=== PATIENT | female | born 1960 | race Native Hawaiian/Other Pacific Islander ===

== ENCOUNTER 2019-07-26 13:25 | Outpatient (CLI) | payer OTHER | END 2019-07-26 20:19 | disposition home or self-care (01) | LOC: MAMMO 13:25 | DX: Z12.31 Encounter for screening mammogram for malignant neoplasm of breast (principal) ==

== ENCOUNTER 2020-06-04 15:22 | Observation (INO) | payer OTHER ==
[~2020-06-04] VITALS: Ht 175.3 cm; Wt 96.8 kg
[2020-06-04 15:26] VITALS: BP 194/96; TEMP 99.2; TEMP 99.5
[2020-06-04 15:49] LABS: PLATELET COUNT 124 K/uL (152-353)
[2020-06-04 15:54] VITALS: BP 156/76
[2020-06-04 16:01] LABS: PARTIAL THROMBOPLASTIN TIME 27.2 SECONDS (24.5-33.6)
[2020-06-04 16:02] LABS: POTASSIUM 4.9 mmol/L (3.6-5.2)
[2020-06-04 16:06] LABS: SODIUM 116 mmol/L (136-145)
[2020-06-04 16:31] VITALS: BP 167/82
[2020-06-04 17:00] VITALS: BP 147/79
[2020-06-04 18:00] VITALS: BP 149/77
[2020-06-04 23:31] LABS: POTASSIUM 4.6 mmol/L (3.6-5.2)
[2020-06-05] VITALS (7 sets, daily range): BP systolic 104–162; BP diastolic 65–82; TEMP 97.6–98.6; Ht 175.3 cm; Wt 96.8 kg
[2020-06-05 05:13] LABS: PLATELET COUNT 102 K/uL (152-353)
[2020-06-05] MEDS ORDERED: MOBIC7.5 M1 PO (05:37)
[2020-06-05] MEDS ORDERED: CHLORTHALID25 MG PO (05:40)
[2020-06-05] MEDS ORDERED: ROZEREM8 MG PO (05:40)
[2020-06-05] MEDS ORDERED: LISI20TA11 PO (05:41)
[2020-06-05] MEDS ORDERED: SEROQUEL200 MG PO (05:43)
[2020-06-05 05:46] LABS: POTASSIUM 4.3 mmol/L (3.6-5.2)
[2020-06-05 11:05] LABS: POTASSIUM 5.9 mmol/L (3.6-5.2)
[2020-06-05 18:44] LABS: POTASSIUM 5.8 mmol/L (3.6-5.2)
[2020-06-05 23:29] LABS: POTASSIUM 5.2 mmol/L (3.6-5.2)
[2020-06-06 00:11] VITALS: BP 180/90; TEMP 97.9
[2020-06-06 03:59] VITALS: BP 168/82; TEMP 98.2
[2020-06-06 05:43] LABS: PLATELET COUNT 105 K/uL (152-353)
[2020-06-06 05:52] LABS: POTASSIUM 5.4 mmol/L (3.6-5.2)
[2020-06-06] MEDS ORDERED: AMLODIPINE BESYLATE PO (09:46)
[2020-06-06 11:42] LABS: POTASSIUM 5.3 mmol/L (3.6-5.2)
== END 2020-06-06 13:01 | disposition home or self-care (01) ==
LOC: ED 15:22 → MED/SURG 17:45
PROVIDERS: Internal Medicine Endocrinology, Diabetes & Metabolism; ADMIT Family Medicine
DX: E87.1 Hypo-osmolality and hyponatremia (principal); I10 Essential (primary) hypertension; Z72.0 Tobacco use; M62.82 Rhabdomyolysis; R19.7 Diarrhea, unspecified; R25.2 Cramp and spasm; J44.9 Chronic obstructive pulmonary disease, unspecified; K74.69 Other cirrhosis of liver; K21.9 Gastro-esophageal reflux disease without esophagitis
CPT/HCPCS: 36415; 80048; 80053; 82550; 82553; 83880; 83935; 84295; 84484; 85027; 85379; 85610; 85730; 93005; 94760; 96360; 96361; 99220; 99284; G0378; J1650

== ENCOUNTER 2020-11-01 18:22 | Inpatient (IN) | payer OTHER ==
[~2020-11-01] VITALS: Ht 177.8 cm; Wt 113.6 kg
[2020-11-01 18:22] VITALS: BP 212/120; TEMP 98.6
[~2020-11-01 18:22] MED LIST: AMLODIPINE BESYLATE PO; CHLORTHALID25 MG PO; LISI20TA11 PO; MOBIC7.5 M1 PO; ROZEREM8 MG PO; SEROQUEL200 MG PO
[2020-11-01 19:13] VITALS: BP 166/93
[2020-11-01 19:37] LABS: PLATELET COUNT 165 K/uL (152-353)
[2020-11-01 20:02] LABS: SODIUM 138 mmol/L (136-145)
[2020-11-01] MEDS ORDERED: MAGNESIUM OXID400 M3 PO (20:25)
[2020-11-01] MEDS ORDERED: AMINOFEN500 MG PO (20:27)
[2020-11-01] MEDS ORDERED: HYDR25TA60 PO (20:30)
[2020-11-01] MEDS ORDERED: LORATADINE10 M1 PO (20:31)
[2020-11-01] MEDS ORDERED: VITAMIN E400 UNIT PO (20:31)
[2020-11-01] MEDS ORDERED: D350 MCG PO (20:32)
[2020-11-01] MEDS ORDERED: HAIR SKIN AND N1 TAB PO (20:32)
[2020-11-01 20:57] VITALS: BP 168/91; TEMP 98.6
--- NOTE | 2020-11-01 21:40 | NUR ---
59 YR OLD FEMALE PT BROUGHT TO ICU 3 VIA STRETCHER FROM ER, ADMITTED WITH COPD EXACERBATION AND RESPIRATORY INSUFFICIENCY. PT ALERT AND ORIENTED SITTING UP IN BED WITH NO ACUTE DISTRESS NOTED, SOB AND SOME INCREASED RESPIRATORY EFFORT WITH ACTIVITY, SKIN WARM AND DRY, RADIAL AND PEDAL PULSES INTACT/EQUAL, BS+, EXPIRATORY WHEEZING NOTED ON AUSCULTATION, VENTI MASK IN USE, 24G IV INTACT TO L HAND AND 20G IV INTACT TO R WRIST. PT EDUCATED ABOUT CARE/ORDERS/MEDICATIONS AND QUESTIONS ANSWERED. SEE ADMIT ASSESSMENT FOR MORE INFO. WILL MONITOR CLOSELY, RAILS UP, BED IN LOW POSITION, CALL LIGHT IN REACH, ENCOURAGED TO CALL NEEDED OR FOR ASSIST TO BSC DUE TO PT SOB WITH ACTIVITY. PT ACKNOWLEDGES UNDERSTANDING.
[2020-11-01 22:11] VITALS: BP 180/97
[2020-11-01 22:57] VITALS: BP 194/95
[2020-11-01 23:00] VITALS: BP 162/83
[2020-11-02] VITALS (51 sets, daily range): BP systolic 101–189; BP diastolic 31–106; TEMP 98.6–98.9; Ht 177.8 cm; Wt 113.6 kg
--- NOTE | 2020-11-02 00:01 | NUR ---
11/01/2020 AT 2348 NOTE ON WIND TURBINE PERFORMANCE ENGINEER PT'S RHYTHM IS IRREGULAR AND RATE IN 140s, PT INSTRUCTED TO BARE DOWN IF HAVING A BM NOTE NO CHANGE IN WIND TURBINE PERFORMANCE ENGINEER. 2352 CALLED RESPIRATORY WHO IS NOW AT BEDSIDE GETTING EKG ON PT, RESULT A-FIB RATE 142 PER EKG. PT STATES SHE DOES FEEL LIKE HER HEART IS RACING. CALLED DR. FARLEY IN ER NOTIFIED HIM OF CHANGE IN PT'S HEART RATE AND RHYTHM. DR. FARLEY IS ON [address] WAY DOWN TO SEE PT AT THIS TIME.
--- NOTE | 2020-11-02 00:02 | NUR ---
DR. FARLEY FROM ER NOW AT BEDSIDE, EKG RESULTS GIVEN TO DR, NEW ORDERS RECEIVED.
--- NOTE | 2020-11-02 00:10 | NUR ---
HEART RATE 138, GAVE CARDIZEM 20MG SLOW IVP OVER 4 MINUTES PER NEW ORDER. COAT FITTER BEING MONITORED CLOSELY. AT 0015 HEART RATE 114, IRREGULAR RHYTHM. 11/02/20 AT AROUND 0040 HUNG CARDIZEM DRIP TO INFUSE AT 10MG/HOUR PER NEW ORDER, DRIVER LIFTER OF SANITATION TRUCK CONTINUES TO MONITOR PT OFTEN AND MONITOR VITALS EVERY 15 MINUTES. PT EDUCATED ABOUT MEDICATION.
--- NOTE | 2020-11-02 01:45 | NUR ---
EQUINE MANAGER SHOWS IRREGULAR RHYTHM WITH RATE IN 140s. INCREASED CARDIZEM DRIP TO 15MG/HOUR, WILL MONITOR CLOSELY.
--- NOTE | 2020-11-02 01:54 | NUR ---
RESTING WITH EYES CLOSED, NO S/S OF PAIN OR DISTRESS NOTED, BOTH IV SITES INTACT, NS INFUSING AT 50ML/HR, CARDIZEM DRIP INFUSING WITH A-FIB NOTED ON MONITOR IRREGULAR RATE IN 130s(IF NOT IMPROVED WILL CALL ER DR AT 0200), RESP RATE 18 NONLABORED, O2 AT 3LPM VIA NC WITH SAT OF 95%, LAST B/P 133/55, WILL MONITOR CLOSELY, RAILS UP, BED IN LOW POSITION, CALL LIGHT IN REACH.
--- NOTE | 2020-11-02 02:42 | NUR ---
HEART RATE REMAINS IRREGULAR 129.
--- NOTE | 2020-11-02 02:56 | NUR ---
NEW TELEPHONE ORDER FROM DR. FARLEY IN ER FOR CARDIZEM 25MG SLOW IVP OVER 4 MINUTES X 1 DOSE NOW, MAY TITRATE CARDIZEM DRIP PER PROTOCOL. HEART RATE 120s-140 IRREGULAR. WILL CONTINUE TO MONITOR PT AND VITALS CLOSELY. PT HAVING SOME SLIGHT SOB WITH MUCH MOVEMENT. 0245 HEART RATE 130, B/P 130/65, RESP RATE 19, O2 SAT 95%, WILL MONITOR, RAILS UP, BED IN LOW POSITION.
--- NOTE | 2020-11-02 03:28 | NUR ---
GAVE CARDIZEM 25MG SLOW IVP OVER 4 MINUTES PER NEW ONE TIME ORDER. EMERGENCY DISPATCH OPERATOR AND VITALS BEING MONITORED CLOSELY, REMAINS ON CARDIZEM DRIP HEART RATE IRREGULAR 130S-120s AT TIME MEDICATION GIVEN.
--- NOTE | 2020-11-02 03:45 | NUR ---
HEART RATE DECREASED TO 99 BUT REMAINS IRREGULAR SINCE CARDIZEM DOSE GIVEN AT 0328. WILL CONTINUE TO MONITOR.
--- NOTE | 2020-11-02 04:30 | NUR ---
HEART RATE IN 90s IRREGULAR, DECREASED CARDIZEM DRIP TO 10MG/HOUR, WILL MONITOR CLOSELY.
--- NOTE | 2020-11-02 06:15 | NUR ---
UP TO BSC WITH ASSIST, PT SOB WITH ACTIVITY. URINATED AND NOW BACK IN BED. ALERT AND ORIENTED, BOTH IV SITES INTACT WITH NS ONGOING AND CARDIZEM DRIP AT NOW AT 15MG/HOUR RATE INCREASED TO 110s ONCE PT WAS AWAKE, WILL CONTINUE TO MONITOR CLOSELY, RAILS UP, BED IN LOW POSITION, HOB ELEVATED.
--- NOTE | 2020-11-02 06:23 | NUR ---
PT PLACE ON HIGH FLOW NC BY RESPIRATORY PER NEW ORDER FROM DR. FARLEY. ABG WILL BE DRAWN AT 0800.
--- NOTE | 2020-11-02 07:00 | NUR ---
REC'D PT AWAKE AND ALERT SITTING UP IN BED ON CELLPHONE. NO ACUTE DISTRESS NOTED OR CO FROM PT AT THIS TIME. PT NOTED TO HAVE CARDIZEM DRIP INFUSING AT 15ML/HR VIA PUMP INTO LEFT HAND. NS AT 50ML/HR NOTED TO BE INFUSING INTO RT FA AT THIS TIME. PT NOTED TO REMAIN IN AFIB BUT RATE CONTROLLED IN 90'S AT THIS TIME. PT DENIES ANY PAIN OR PROBLEMS AT THIS TIME. PT ALSO NOTED TO BE ON HIGH FLOW AT 35% AT 45L. WILL CONT TO MONITOR.
--- NOTE | 2020-11-02 08:15 | NUR ---
RESP AT BS OBTAINING ROUTINE ABG.
[2020-11-02 08:29] LABS: PLATELET COUNT 167 K/uL (152-353)
--- NOTE | 2020-11-02 08:30 | NUR ---
TORI FROM RESP BROUGHT ABG RESULTS AND SUGGESTED WE TRY TO WEAN PT FROM HIGH FLOW TO NC AT 3L BASED ON ABG. PT SITTING UP IN BED EATING BREAKFAST. NO DISTRESS NOTED. WILL CONT TO MONITOR.
[2020-11-02 08:37] LABS: POTASSIUM 4.6 mmol/L (3.6-5.2); SODIUM 134 mmol/L (136-145)
--- NOTE | 2020-11-02 08:41 | NUR ---
PLACED PT ON N/C @ 3 LPM. NURSE NOTIFIED.
--- NOTE | 2020-11-02 09:15 | NUR ---
PT ASKED TO BORROW PHONE SECURITY ASSESSOR CORD. PT ON PHONE IN BED. PT STATES SHE STILL FEELS LITTLE WEAK BUT IMPROVED FROM TIME OF ADMINSION. NC AT 3L INTACT AND SATS MAINTAINING 93-94%,
--- NOTE | 2020-11-02 09:30 | NUR ---
ARCHANA FROM [facility] PHONED AND STATED SHE HAD REC'D ORDER FOR VQ SCAN IN AM AND MEDS WERE ORDERED PT WOULD HAVE TEST IN AM. EXPLAINED TO PT TO REMAIN NPO AFTER MN TONIGHT FOR TEST. PT VERBALIZED UNDERSTANDING. -
--- NOTE | 2020-11-02 10:10 | NUR ---
DR HUYNH CALLED AND UPDATE GIVEN ON PT. INFORMED HER OF PT RECEIVING CARDIZEM DRIP AND VS STABLE AT THIS TIME. ALSO INFORMED HER THAT PT WAS ON NC AT 3L/NC AND SATS HOLDING AT 95%. NEW ORDERS REC'D TO OBTAIN A TSH FROM AM LABS. LAB INFORMED AND SPOKE WTIH ADALI CONCERNING NEW ORDER.
--- NOTE | 2020-11-02 10:30 | NUR ---
DR HUYNH AT BS TALKING WITH PT AT THIS TIME.
--- NOTE | 2020-11-02 14:30 | NUR ---
PT'S HR NOTED TO BE AROUND 90-92 HOWEVER NOTED THAT PT WAS BACK IN SR WITH BBB. INFOMRED IFNORMED PER MD WE WOULD START CARDIZEM PO THEN TIRTRATE DRIP AFTER PO MEDS.
--- NOTE | 2020-11-02 16:03 | NUR ---
PT ASSISTED UP TO BSC AT THIS TIME. PT NOTED TO GET VERY SHORT OF BREATH WITH MINIUM EXERTION. SATS MAINTAIN WNL ON NC AT 3L.
--- NOTE | 2020-11-02 18:22 | NUR ---
PT'S HR NOTED TO BE 93 AND REMAINS SR ON TEL WITH BBB. CARDIZEM DRIP DECREASED TO 12ML AT THIS TIME. WILL CONT TO MONITOR.
--- NOTE | 2020-11-02 21:00 | NUR ---
AWAKE WATCHING TV WITH NO DISTRESS NOTED, DENIES ANY NEED, RESP RATE NONLABORED WITH O2 AT 3LPM VIA NC WITH SAT IN MID TO HIGH 90s, VITALS BEING MONITORED, GEOTECHNICAL LABORATORY TECHNICIAN IN USE WITH REGULAR RATE/RHYTHM IN 90s CARDIZEM DRIP AT 10MG/HR ATTEMPTING TO GET PT OFF DRIP DURING SHIFT EARLIER PT STARTED ON PO MED FOR A-FIB, VITALS BEING MONITORED, ENCOURAGED TO CALL NEEDED, RAILS UP, BED IN LOW POSITION. NONPRODUCCTIVE COUGH NOTED AT TIMES.
--- NOTE | 2020-11-02 22:00 | NUR ---
DECREASED CARDIZEM DRIP TO 8MG/HR, WILL CONTINUE TO MONITOR CLOSELY.
--- NOTE | 2020-11-02 23:20 | NUR ---
AWAKE AND ALERT WITH NO ACUTE DISTRESS NOTED, SITTING UP RIGHT IN BED WATCHING TV AND TALKING WITH STAFF, IV SITES INTACT WITH NORMAL SALINE AND CARDIZEM DRIP ONGOING, RESP RATE NONLABORED BUT PT DOES GET SOB WITH ANY ACTIVITY,, O2 AT 3LPM VIA NC, DENIES ANY PROBLEMS AT THIS TIME, RAILS UP, BED IN LOW POSITION, ENCOURAGED TO CALL NEEDED.
--- NOTE | 2020-11-02 23:39 | NUR ---
PT UP TO BSC TO URINATE. NOTE SOME SOB WITH ACTIVITY, PT NOW BACK IN BED WITH NO ACUTE DISTRESS NOTED, WILL MONITOR, RAILS UP, BED INLOW POSITION, CALL LIGHT IN REACH.
--- NOTE | 2020-11-02 23:45 | NUR ---
PT GIVEN EDUCATIONAL HANDOUT ABOUT A-FIB.
[2020-11-03] VITALS (44 sets, daily range): BP systolic 117–11554; BP diastolic 7–103; TEMP 98–98.5
--- NOTE | 2020-11-03 00:05 | NUR ---
PATIENT SITTING IN HIGH FOWLERS POSITION WATCHING TV. PATIENT DENIES ANY PAIN, NEEDS OR C/O AT THIS TIME. NAD NOTED WITH PATIENT. BEDSIDE TABLE WITH PERSONAL BELONGINGS WITHIN PATIENT'S REACH.
--- NOTE | 2020-11-03 01:30 | NUR ---
DECREASED CARDIZEM DRIP TO 5MG/HR, CEMENT SACK BREAKER SHOWS REGULAR RATE AND SINUS RHYTHM RATE IN 80s, WILL CONTINUE TO MONITOR CLOSELY, PT RESTING QUIETLY WITH EYES CLOSED AND NO S/S OF DISTRESS NOTED. RAILS UP, BED IN LOW POSITION, CALL LIGHT IN REACH.
--- NOTE | 2020-11-03 03:55 | NUR ---
CONTINUES TO REST WITH EYES CLOSED AND NO S/S OF PAIN OR DISTRESS NOTED. VITALS BEING MONITORED, STRIKE PLATE ATTACHER IN USE WITH REGULAR RATE IN 70s, IV INTACT WITH NS INFUSING AT 50 AND CARDIZEM DRIP INFUSING AT 5MG/HR. WILL MONITOR CLOSELY, RAILS UP, BED IN LOW POSITION, CALL LIGHT IN REACH.
--- NOTE | 2020-11-03 04:00 | NUR ---
DECREASED CARDIZEM DRIP TO 2MG/HR, WILL MONITOR CARDIAC CLOSELY.
--- NOTE | 2020-11-03 04:40 | NUR ---
TECH INTERN SHOWS REGULAR RHYTHM RATE 80. CARDIZEM DRIP ONGOING, WILL MONITOR CLOSELY.
--- NOTE | 2020-11-03 04:52 | NUR ---
PT JUST FINISHED BREATHING TREATMENT, CIRCUIT BOARD DRAFTER NOTES LONG LINES OPERATOR SHOWS IRREGULAR RHYTHM WITH RATE 110s TO 130 APPEARS TO BE A-FIB. 0455 INCREASED CARDIZEM DRIP TO 5MG/HR. WILL MONITOR.
--- NOTE | 2020-11-03 05:20 | NUR ---
BLOOD DRAWN BY MECHANICAL PROJECT ENGINEER AT THIS TIME FOR AM LABS. PATIENT TOLERATED WELL AND DENIES ANY C/O AT THIS TIME. PER PATIENT'S REQUEST, PROVIDED PATIENT WITH CUP OF ICE.
[2020-11-03 05:33] LABS: PLATELET COUNT 161 K/uL (152-353)
--- NOTE | 2020-11-03 05:38 | NUR ---
PT AWAKE SITTING UP RIGHT IN BED IN HIGH FIELDS'S POSITION TALKING WITH STAFF WITH NO ACUTE DISTRESS NOTED, IV SITES INTACT, VITALS BEING MONITORED, 02 AT 3LPM VIA NC WITH SAT 0F 94%, PT EATING A SNACK AND DRINKING SOME WATER NOW HAVING A "COUGHING SPELL" SHE STATES. COUGHING FREQUENTLY FOR A FEW MINUTES, NOTE HEART RATE INCREASED TO 130-140. EVEN WHEN PT ASKED TO SIT STILL AND STOP MOVING(DUE TO EATING AND DRINKING DRINK) RATE 120s-130. INCREASED CARDIZEM DRIP TO 8MG/HR, ENCOURAGED PT TO RELAX. WILL MONITOR CLOSELY, RAILS UP, BED IN LOW POSITION.
[2020-11-03 05:42] LABS: POTASSIUM 4.3 mmol/L (3.6-5.2)
--- NOTE | 2020-11-03 06:03 | NUR ---
PT CONTINUES TO COUGH OFF AND ON NOTE PT EATING ICE. ASKED PT TO HOLD OFF ON EATING ICE FOR A WHILE BUT PT STATES SHE NEEDS ICE FOR HER COUGH. CONTROL SUPERVISOR CONTINUES TO MONITOR CLOSELY, HEART RATE 110-120, CARDIZEM DRIP REMAINS AT 8MG/HR. PT SITTING IN HIGH FIELDS'S POSITION WATCHING TV. O2 SAT 93-94%. WILL MONITOR CLOSELY, RAILS UP, BED IN LOW POSITION. NOTE PT WILL GET 2ND DOSE OF CARDIZEM PO THIS MORNING(SCHEDULED AT 0900).
--- NOTE | 2020-11-03 08:30 | NUR ---
PT SITTING UP FEEDING SELF BREAKFAST. TALKING ON TELEPHONE WITH [facility] ABOUT HER APPOINTMENTS.
--- NOTE | 2020-11-03 09:17 | NUR ---
MARISOL PETTIT RN NOTIFIED OF NEED TO CALL [facility]. AUTHORIZATION # & REFERRAL NUMBER GIVEN TO HER. INFORMED HER OF PT'S REQUEST FOR PORTABLE O2.
--- NOTE | 2020-11-03 11:35 | NUR ---
PT UP TO BSC TO VOID. PT WITH INCREASED SOB WITH EFFORT. PT WITH LARGE VOID& SM BROWN FORMED BM. PERICARE PER SELF. PT BACK TO BED, DR HUYNH AT BS.
--- NOTE | 2020-11-03 13:05 | NUR ---
PT TO XRAY PER WC ON O2@ 2L/NC.
--- NOTE | 2020-11-03 13:15 | NUR ---
PT BACK FROM XRAY ON O2 AT 2L/NC. AGAIN NOTED SOB WITH EFFORT. BACK TO BED.
--- NOTE | 2020-11-03 13:48 | NUR ---
i called [facility] @ [phone] x [phone] and spoke with Adore to confirm auth #[id number] that was notification for ICU admit. they confirmed auth # and that pt does not require additional precert for ECHO to be done today inhouse, No precert required because she is inpt, call reference number [id number]. I notified her nurse, Marilee of same. I also called [phone] to schedule her FU appts, x [phone] Juan F Dexter on 11/13/20 @ noon, x [phone] for PCP fu with Dr. Nichol Saucedo on 11/11/20 @ 9:30am (she is not there on so could do same day as pulm appt). They are also putting in an urgent request for New Cardiology Consult and will call pt to schedule kyaw, we may call x [phone] to FU.
--- NOTE | 2020-11-03 13:55 | NUR ---
CALL FROM MARISOL MARSHALL RN. HAS TALKED WITH [facility] OK[facility]D ECHO TODAY & SCHEDULED F/U APPOINTMENTS FOR HER FOR CHIEF ENGINEER PRODUCTION/PRIMARY CARE DR & WILL CALL HER FOR CARDIOLOGY CONSULT WITH AT THE ID.
--- NOTE | 2020-11-03 14:00 | NUR ---
RT IN WITH PT. ECHO CARDIOGRAM IN PROGRESS.
--- NOTE | 2020-11-03 14:52 | NUR ---
REFERREAL TO DR THOMAS PER JANET OLIVEIRA ARC WELDER TALKED WITH TORY. DR THOMAS WILL SEE PT IN THE AM. INFO FAXED TO DR THOMAS.
--- NOTE | 2020-11-03 16:54 | NUR ---
PT WITH ELEVATED BP 167/83, HR 93. PT MEDICATED WITH LABETELOL 10MG SIVP.
--- NOTE | 2020-11-03 18:30 | NUR ---
OH'S HR 89 BPM, AFIB. CARDIZEM DRIP DECREASED TO 4MG/HR.
--- NOTE | 2020-11-03 20:19 | NUR ---
PATIENT WAS HELPED TO THE BSC. THE PATIENT WAS THEN WAS PLACED IN THE CHAIR AND PATIENT PATIENT REPORTED RELIEF FROM BACK DISCOMFORT
--- NOTE | 2020-11-03 20:36 | NUR ---
PATIENT IS UP IN THE CHAIR AT BEDSIDE WATCHING TV
--- NOTE | 2020-11-03 22:57 | NUR ---
PATIENT IS RESTING QUIETLY WITH EYES CLOSED. NO ACUTE DISTRESS IS NOTED. PATIENT CURRENT HR B/W 108-118, SPO2 95%, RR 18, B/P 159/84.
--- NOTE | 2020-11-03 23:26 | NUR ---
PATIENT IS AWAKE AND READING. RESPIRATORY IS AT BEDSIDE GIVING BREATHING TREATMENT
[2020-11-04] VITALS (23 sets, daily range): BP systolic 99–206; BP diastolic 72–100; TEMP 97.6–99
--- NOTE | 2020-11-04 01:51 | NUR ---
PATIENTS O2 DROPPED SIGHTLY IN THE HIGH 80S. I RAISED THE HEAD OF HER BED AND AND SATURATION IMPROVED. PATIENT CURRENT O2 SATURATION IS LOW TO MID 90S
--- NOTE | 2020-11-04 01:52 | NUR ---
Patient remains on Cardizem IV drip at 4mg/hr with current hr fluctuating b/w 97-120 with rhythm still irregular showing Atrial Fib. Will continue to montior as titrate down as needed.
--- NOTE | 2020-11-04 02:51 | NUR ---
LATE ENTRY. 11/04/20 0230. PATIENTS HEART RATE HAS BEEN STABLE RANGING FROM 95-110. WE WEANED HER OFF THE CARDIZEM DRIP. PATIENT IS STABLE AND RESTING. HER RESPIRATIONS ARE EVEN AND NON LABORED. PATIENTS HEART RATE IS STABLE.
--- NOTE | 2020-11-04 03:40 | NUR ---
Patient noted with blood pressure of 153/84 with HR -118. PATIENT GIVEN LABETOLOL 10 MG GIVEN SLOW IV PUSH. WILL MONITOR FOR DECREASE IN BLOOD PRESSURE,
--- NOTE | 2020-11-04 03:40 | NUR ---
PATIENT NOTED WITH BLOOD PRESSURE OF 153/78 WITH HR 118 WITH 95% SPO2 AT 3 LPM VIA NC. WILL MONITOR FOR DECREASE IN BLOOD PRESSURE.
--- NOTE | 2020-11-04 04:10 | NUR ---
POST 30 MINUTE OF LABETALOL PATIENTS CURRENT 110/77, HR-85, SPO2 96%, RR-16.
[2020-11-04 05:18] LABS: PLATELET COUNT 161 K/uL (152-353)
[2020-11-04 05:24] LABS: POTASSIUM 4.7 mmol/L (3.6-5.2)
--- NOTE | 2020-11-04 05:44 | NUR ---
Patient requested assistance with monitors to use the bedside commode. Patient taken of the monitors and voided 1000 mls of clear yellow urine. Patient was able to do activity w/o assistance however paitent does get short of breath on exertion. Patient was noted taking slow deep breaths using pursed lips and o2 sats in the upper 90's with HR-109.
--- NOTE | 2020-11-04 07:45 | NUR ---
PT SITTING IN HF TALKING WITH STAFF. NAD NOTED. HR 100-115 AFIBB WITH PVCS. PT ON 3 L/M NC. PT GIVEN CUP OF ICE PER REQUEST. BED IN LOWEST POSITION, SRX2, CALL LIGHT IN REACH. WILL CONTINUE TO MONITOR.
--- NOTE | 2020-11-04 09:07 | NUR ---
NURSE FROM DR. THOMAS'S OFFICE AT BEDSIDE SPEAKING WITH PT.
--- NOTE | 2020-11-04 13:00 | NUR ---
DR THOMAS AT BEDSIDE TO SEE PT. ORDERS REC'D TO GIVE DIGOXIN 0.5 MG IVP NOW, GIVE DIGOXIN 0.25 MG IVP AT 1600, GIVE DIGOXIN 0.25 MG IVP AT 2200, START DIGOXIN 0.125 MG PO DAILY STARTING TOMORROW AND CHECK DIG LEVEL IN A COUPLE OF DAYS.
--- NOTE | 2020-11-04 23:00 | NUR ---
Patient noted with increased blood pressure reading 194/87, HR-138. Patient given Labatolol 10 mg Slow Iv push. Will reassess for decrease in blood pressure and HR.
--- NOTE | 2020-11-04 23:14 | NUR ---
PATIENT WAS UP TO THE BSC AND A MEDIUM SOFT FORMED BM
--- NOTE | 2020-11-04 23:30 | NUR ---
30 minutes post medication patient blood pressure is reading 167/89, HR-97. Will continue to monitor.
[2020-11-05] VITALS (20 sets, daily range): BP systolic 126–183; BP diastolic 73–884; TEMP 97.8–99.3
--- NOTE | 2020-11-05 00:24 | NUR ---
RT AT THE BEDSIDE ADMINISTERING BREATHING TREATMENT. HEART RATE 103. WILL MONITOR THROUGH TREATMENT
--- NOTE | 2020-11-05 01:00 | NUR ---
PATIENT IS UP IN BED WATCHING TV. PATIENT DENIES PAIN AND IS RESTING. NO ACUTE DISTRESS NOTED
[2020-11-05 02:35] LABS: PLATELET COUNT 171 K/uL (152-353)
[2020-11-05 02:36] LABS: POTASSIUM 4.9 mmol/L (3.6-5.2)
--- NOTE | 2020-11-05 02:56 | NUR ---
0200 :PATIENTS SYSTOLIC BP WAS 170/84. PATIENT WAS GIVEN 10MG OF LABETALOL IV. AT 0230 PATIENTS BP WAS REASSESED AND AND DIT WAS 124/73
--- NOTE | 2020-11-05 04:41 | NUR ---
PATIENT WAS HELPED UP TO THE BESIDE COMODE WITH STAND BY ASSIST ONLY
--- NOTE | 2020-11-05 09:45 | NUR ---
DR SANDERSON AT MAKING ROUNDS AND TALKING TO PT.
--- NOTE | 2020-11-05 13:15 | NUR ---
PTS BP NOTED TO BE 176/95 WITH HR 113. WILL GIVE PT PRN BP MEDS
--- NOTE | 2020-11-05 14:00 | NUR ---
BP 54068 HR 96 WILL CONT TO MONITOR.
--- NOTE | 2020-11-05 15:00 | NUR ---
BP 156/86 HR 97 PT HAS NO CO AT THIS TIME. WILL CONT TO MONITOR.
--- NOTE | 2020-11-05 16:09 | NUR ---
PT'S BP NOTED TO NE 181/110 HR 98. PT DENIES ANY PAIN OR PROBLEMS. WILLGIVE PRN MEDS AND INFORM MD . ATTMEPTED TO CONTACT DR SANDERSON IN [place] NO ANSWER. WILL TRY AGAIN AT LATER TIMES.
--- NOTE | 2020-11-05 17:47 | NUR ---
DR SANDERSON INFORMED ABOUT PT'S BP BEING ELEVATED STARTING AROUND 1330 TODAY AND INFORMED HIM WE HAD GIVEN PRN LABETALOL IV. PT'S BP REMAINS AT 174/100 HR 113 AT REST. HE INFOMRED ME HE WOULD LOOK AT HER MEDS AND MAKE ADJUSTMENTS TO HER MEDS WILL AWAIT FURTHER ORDERS.
--- NOTE | 2020-11-05 19:20 | NUR ---
PT AWAKE, ALERT, AND ORIENTED SITTING UP IN BED WATCHING TV AND TALKING WITH STAFF, DENIES ANY PAIN OR PROBLEMS AT THIS TIME, RESP RATE NONLABORED, O2 AT 3LPM VIA NC, IV SITES INTACT, VITALS BEING MONITORED, WILL MONITOR CLOSELY, RAILS UP, BED IN LOW POSITION, ENCOURAGED TO CALL NEEDED.
--- NOTE | 2020-11-05 21:25 | NUR ---
PT AWAKE WITH NO DISTRESS NOTED TALKING ON PHONE, NO S/S OF PAIN OR DISTRESS NOTED, RESP RATE NONLABORED, VITALS BEING MONITORED, WILL MONITOR CLOSELY, RAILS UP, BED IN LOW POSITION.
--- NOTE | 2020-11-05 23:08 | NUR ---
PT AWAKE WATCHING TV WITH NO S/S OF DISTRESS NOTED, WILL MONITOR CLOSELY, VITALS BEING MONITORED, RAILS UP, BED IN LOW POSITION, CALL LIGHT IN REACH.
[2020-11-06] VITALS (25 sets, daily range): BP systolic 139–191; BP diastolic 78–108; TEMP 97–99.2
--- NOTE | 2020-11-06 00:10 | NUR ---
RESPIRATORY AT BEDSIDE AND ADMINISTERING BREATHING TX TO PATIENT.
--- NOTE | 2020-11-06 00:26 | NUR ---
GAVE LABETALOL 10MG SLOW IVP PRN FOR ELEVATED B/P. B/P WAS 164/98 AND THEN RETAKEN AT 0020 B/P WAS 172/103. WILL MONITOR B/P AND PT CLOSELY.
--- NOTE | 2020-11-06 01:00 | NUR ---
B/P IS NOW 154/91, WILL CONTINUE TO MONITOR CLOSELY.
--- NOTE | 2020-11-06 01:22 | NUR ---
PT RESTING WITH EYES CLOSED, NO S/S OF PAIN OR DISTRESS NOTED, IV SITES INTACT, VITALS BEING MONITORED, O2 AT 3LPM VIA NC, WILL MONITOR CLOSELY, RAILS UP, BED IN LOW POSITION.
--- NOTE | 2020-11-06 03:55 | NUR ---
PT AWAKE, ALERT, AND ORIENTED X4 WITH NO ACUTE DISTRESS NOTED, DENIES ANY PAIN OR PROBLEMS, BOTH IV SITES INTACT, RESP RATE NONLABORED, O2 AT 3LPM VIA NC WITH O2 SAT OF 97%, VITALS BEING MONITORED, CIRCUITRY NEGATIVE INSPECTOR IN USE WITH IRREGULAR RATE IN 90s. PT UP TO BSC, NOTE SOB WITH ACTIVITY, URINATED 800ML CLEAR YELLOW URINE. PT NOW BACK IN BED, WILL MONITOR CLOSELY, RAILS UP, BED IN LOW POSITION, CALL LIGHT IN REACH, ENCOURAGED TO CALL NEEDED, PT ACKNOWLEDGES UNDERSTANDING.
[2020-11-06 04:58] LABS: PLATELET COUNT 150 K/uL (152-353)
[2020-11-06 05:15] LABS: POTASSIUM 5.1 mmol/L (3.6-5.2)
--- NOTE | 2020-11-06 05:44 | NUR ---
PT RESTING QUIETLY WITH EYES CLOSED, NO S/S OF PAIN OR DISTRESS NOTED, VITALS BEING MONITORED, TAG CLERK IN USE WITH RATE 80-90s IRREGULAR, O2 AT 3LPM VIA NC WITH SAT OF 98%, RESP RATE NONLABORED 20, BOTH IV SITES INTACT, WILL MONITOR CLOSELY, RAILS UP, BED IN LOW POSITION.
--- NOTE | 2020-11-06 07:45 | NUR ---
DR SANDERSON AT TO MAKE ROUNDS. CURRENTLY TALKING WITH PT ABOUT CARE AND FOLLOW UP ON DISCHARGE. NEW ORDER REC'D TO DC IVFS
--- NOTE | 2020-11-06 09:39 | NUR ---
REC'D CALL FROM ELIZABETH, FOOD SERVICE TRAY ATTENDANT WITH [facility], FOLLOWING UP ON POSSIBILITY OF PT TRANSFER. INFORMED HER PT IS CURRENTLY IN OUR PCU AND POSSIBLE DISCHARGE IN THE NEXT ONE OR TWO DAYS, F/U APPTS HAVE ALREADY BEEN MADE WITH [place] [facility] AND MANAGER CLIENT, THAT THE TRANSFER CALL WAS ORIGINALLY MADE FROM WHEN PT WAS IN THE ER. ELIZABETH STATES "OK THAT'S FINE I WAS JUST CALLING MAKING MY ROUNDS THIS MORNING AND I WILL CALL BACK ON TUESDAY TO CHECK AND SEE IF SHE WAS DISCHARGED THROUGH THE WEEKEND." CLARIFIED WITH DR. SANDERSON THAT HE WAS NOT TRYING TO CURRENTLY TRANSFER PT AT THIS TIME.
--- NOTE | 2020-11-06 15:16 | NUR ---
PT'S BP NOTED TO BE 164/101 HR 105-108. DR SANDERSON INFORMED AND INSTRUCTED TO GIVE LABETALOL IV AND HE WOULD ADJUST MEDS . PT SITTING ON BED TALKING TO FAMILY ON CELLPHONE. WILL CONT TO MONITOR.
--- NOTE | 2020-11-06 17:11 | NUR ---
PT'S BLOOD PRESSURE REMAINS ELEVATED AT 186/102. 2ND DOSE OF LABETALOL BEING GIVEN AT THIS TIME. WILL NOTIFY
--- NOTE | 2020-11-06 17:30 | NUR ---
DR SANDERSON IN HERE AT THIS TIME AND INFORMED HIM THAT AROUND 5PM PT'S BP NOTED TO BE 164/101. INFOMRED WE HAD GIVEN HER PRN LABETALOL ORDERED AT 1500 AND AGAIN AROUND 1700 WITH NO CHANGE NOTED IN BP. VERBAL ORDERS REC'D TO GIVE PT ANOTHER DOSE OF METOPROLOL ER 50MG PO X 1 DOSE NOW AND HE WOULD LOOK AND MAKE FIRTHER CHANGES NECCESARY
--- NOTE | 2020-11-06 20:02 | NUR ---
PT AWAKE, ALERT, AND ORIENTED X4 SITTING UP IN BED TALKING WITH STAFF WITH NO ACUTE DISTRESS NOTED, DENIES ANY PAIN OR OTHER PROBLEMS, SKIN WARM AND DRY, RADIAL AND PEDAL PULSES INTACT, 22G IV LOCK INTACT TO L FOREARM WITH NO PROBLEMS NOTED TO SITE, BS+, LUNGS DIMINISHED TO AUSCULTATION. PT UP TO BEDSIDE COMMODE, NOTE PT BECOMES MODERATELY SOB WITH ANY ACTIVITY. PT SAT UP AFTER USING BSC AND GAVE SELF BED BATH WITH WARM CLOTHES, HEALTH OUTCOMES LIAISON ASSISTED PT SOME DUE TO SOB ASSISTED TO GET GOWN ON AND ALSO RUBBER GRINDER/B/P CUFF. GOWN CHANGED, EKG LEADS, AND DRAW SHEET ALSO CHANGED. PT NOW SITTING UP IN BED WATCHING TV, WILL MONITOR CLOSELY, RAILS UP, BED IN LOW POSITION, ENCOURAGED TO CALL NEEDED.
--- NOTE | 2020-11-06 22:20 | NUR ---
PT AWAKE, ALERT, AND ORIENTED SITTING UP IN BED WATCHING TV AND TALKING OFTEN WITH ENGINEERING INSPECTOR. DENIES ANY PAIN OR PROBLEMS NOTED, NO S/S OF DISTRESS NOTED, RESP RATE NONLABORED, O2 AT 3LPM VIA NC, VITALS BEING MONITORED, 22G IV INTACT TO L FA WITH NO PROBLEMS NOTED TO SITE. WILL MONITOR CLOSELY, RAILS UP, BED IN LOW POSITION, CALL LIGHT IN REACH.
[2020-11-07] VITALS (20 sets, daily range): BP systolic 107–189; BP diastolic 52–107; TEMP 97.1–98.6
--- NOTE | 2020-11-07 00:10 | NUR ---
PT RESTING QUIETLY IN BED WITH EYES CLOSED, NO S/S OF PAIN OR DISTRESS NOTED, RESP RATE NONLABORED, O2 IN USE VIA NC AT 3LPM, IV SITE INTACT, VITALS BEING MONITORED, WILL MONITOR CLOSELY, RAILS UP, BED IN LOW POSITION, CALL LIGHT IN REACH.
--- NOTE | 2020-11-07 01:26 | NUR ---
RESTING IN BED WITH EYES CLOSED, NO S/S OF PAIN OR DISTRESS NOTED, RESP RATE 15 NONLABORED, O2 AT 3LPM VIA NC WITH SAT OF 96%, 22G IV INTACT TO L FA WITH NO PROBLEMS NOTED TO SITE(FLUSHED EASILY EARLIER WITH 10ML NS), GLASS FURNACE TENDER IN USE WITH IRREGULAR RATE IN 90s, VITALS BEING MONITORED, WILL MONITOR CLOSELY, RAILS UP, BED IN LOW POSITION, CALL LIGHT IN REACH.
--- NOTE | 2020-11-07 02:00 | NUR ---
PT AWAKE DENIES ANY PAIN OR NEEDS, NO ACUTE DISTRESS NOTED. MANUAL B/P DONE AT THIS TIME MANUAL B/P IS 158/90 ON R ARM, STAFF CONTINUES TO MONITOR VITALS CLOSELY PT STATES THAT IS ABOUT WHAT HER B/P USUALLY IS. IV INTACT TO L FA, RESP RATE NONLABORED, O2 IN USE, WILL MONITOR CLOSELY, RAILS UP, BED IN LOW POSITION, ENCOURAGED TO CALL NEEDED. BROUGHT PT SOME ICE AND A COOL, WET CLOTH PER REQUEST. PT NOW WATCHING TV WITH NO DISTRESS.
--- NOTE | 2020-11-07 04:01 | NUR ---
RESTING WITH EYES CLOSED, NO S/S OF PAIN OR DISTRESS NOTED, RESP RATE 15 NONLABORED, O2 AT 3LPM VIA NC, VITALS BEING MONITORED, FORM DRAFTER IN USE WITH IRREGULAR RHYTHM NOTED RATE 89, B/P 144/81. WILL MONITOR CLOSELY, RAILS UP, BED IN LOW POSITION.
[2020-11-07 04:09] LABS: PLATELET COUNT 150 K/uL (152-353)
[2020-11-07 04:27] LABS: POTASSIUM 4.9 mmol/L (3.6-5.2)
--- NOTE | 2020-11-07 04:38 | NUR ---
UP TO BSC TO URINATE AND PT NOW BACK IN BED, NO ACUTE DISTRESS NOTED, SOME SOB WITH ACTIVITY, RESP RATE 18, O2 SAT 96% ON 3LPM VIA NC, WILL MONITOR CLOSELY, RAILS UP, BED IN LOW POSITION, ENCOURAGED TO CALL NEEDED.
--- NOTE | 2020-11-07 06:34 | NUR ---
RESTING WITH EYES CLOSED, NO S/S OF PAIN OR DISTRESS NOTED, RESP RATE 15 NONLABORED, O2 AT 3LPM VIA NC WITH SAT OF 97%, 22G IV INTACT TO L FA, HEART RATE IRREGULAR 92, VITALS BEING TAKEN, WILL MONITOR CLOSELY, RAILS UP, BED IN LOW POSITION. WILL REPORT TO DAY SHIFT NURSE THAT PT HAS SWELLING IN FEET AND HAS GAINED SOME WEIGHT, SOME OF PT'S HOME MEDS HAVE NOT BEEN RESTARTED PT MENTIONED THAT THE HCTZ HELPS WITH SWELLING BUT PT NOT GETTING MEDICATION.
--- NOTE | 2020-11-07 08:30 | NUR ---
PATIENT IS SITTING UP EATING BREAKFAST THIS MORNING. PATIENT HAS NO C/O PAIN AT THIS TIME. HR-91. IV 22G NOTED INTACT WITH NO SIGNS OF INFILTRATION NOTED.
--- NOTE | 2020-11-07 09:45 | NUR ---
HERE ROUNDING ON PATIENT.
--- NOTE | 2020-11-07 12:43 | NUR ---
PATIENT BLOOD PRESSURE CHECKED MANUALLY AND NOTED 150/90. PATIENT GIVEN LABETALOL 10 MG GIVEN IV PUSH. WILL REASSESS FOR DECREASE IN BLOOD PRESSURE.
--- NOTE | 2020-11-07 13:15 | NUR ---
POST LABETALOL BLOOD PRESSURE 147/78, HR-86. WILL CONTINUE TO MONITOR.
--- NOTE | 2020-11-07 15:25 | NUR ---
PATIENT IS RESTING QUIETLY WITH EYES CLOSED. NO ACUTE DISTRESS NOTED AT THIS TIME.
--- NOTE | 2020-11-07 17:12 | NUR ---
PATIENT IS UP USING THE BATHROOM. PATIENT HAD ONE SOFT FORMED BOWEL MOVEMENT AND VOIDED APPROX. 800 ML OF URINE.
--- NOTE | 2020-11-07 20:38 | NUR ---
BP IS 189/101. MONITORING. HR IS 102.
--- NOTE | 2020-11-07 21:23 | NUR ---
PT WAS GIVEN PM MEDICATIONS. LOPRESSOR 100 MG PO WAS GIVEN. HR IS 107 AT THIS TIME.
--- NOTE | 2020-11-07 21:32 | NUR ---
PT HAD LARGE BROWN FORMED STOOL.
--- NOTE | 2020-11-07 23:45 | NUR ---
BP IS 187/116 10 MG PF LABETALOL 20MG IVSP GIVEN.
[2020-11-08 02:00] VITALS: BP 145/78
--- NOTE | 2020-11-08 02:04 | NUR ---
BLOOD PRESSURE WAS CHECKED 145/78. HR IS 101.
--- NOTE | 2020-11-08 03:55 | NUR ---
RESTING QUIETLY. HR IS 92. O2 SATS ARE 95 PERCENT.
--- NOTE | 2020-11-08 04:57 | NUR ---
LAB HERE TO DRAW BLOOD FOR AM LABS.
[2020-11-08 05:08] LABS: PLATELET COUNT 145 K/uL (152-353)
[2020-11-08 05:47] LABS: POTASSIUM 5.1 mmol/L (3.6-5.2)
[2020-11-08 06:00] VITALS: BP 152/80
--- NOTE | 2020-11-08 06:25 | NUR ---
PT CONTINUES TO REST QUIETLY.
[2020-11-08 07:00] VITALS: BP 153/86; TEMP 98.4
[2020-11-08 08:00] VITALS: BP 163/102
--- NOTE | 2020-11-08 09:25 | NUR ---
PT DID NOT WANT A TX. AT THIS TIME. NO RESPIRATORY DISTRESS NOTED.
--- NOTE | 2020-11-08 09:55 | NUR ---
REPORT GIVEN TO JAJA PATEL RN ON MEDICAL SURGICAL FLOOR.
--- NOTE | 2020-11-08 10:12 | NUR ---
PATIENT TAKEN VIA WHEELCHAIR FROM PCU TO MED/SURGICAL FLOOR WITH 02 TANK AT 3LPM VIA RI. PATIENT TOOK ALL HER BELONGINGS WITH HER. PATIENT LEFT IN NO ACUTE DISTRESS.
--- NOTE | 2020-11-08 10:12 | NUR ---
TRANSFERRED TO ROOM 1112 FROM ICU.
--- NOTE | 2020-11-08 10:30 | NUR ---
RESTING SITTING UP IN BED. SKIN WARM AND DRY. WEARING 02 AT 3L PER N/C.
--- NOTE | 2020-11-08 14:30 | NUR ---
Pt. UP TO GET A SHOWER AND BECOME WEAK AND SOB. ASSIST TO SET DOWN. Pt. ASSIST TO BED.
--- NOTE | 2020-11-08 15:00 | NUR ---
Pt. RESTING. SOB DECREASED.
[2020-11-08 20:34] VITALS: BP 185/90; TEMP 97
--- NOTE | 2020-11-08 20:36 | NUR ---
PM MEDS GIVEN AT THIS TIME. PT TOLERATED WELL. PT IN A HIGH-FOWLERS POSITION WITH BED IN THE LOWEST POSITION AND SIDE RAILS UP TIMES TWO AND CALL LIGHT WITHIN REACH. PT. REACTIVE TO VERBAL AND TACTILE STIMULI. NO NAD NOTED.
--- NOTE | 2020-11-08 20:59 | NUR ---
TYLENOL 650 MG GIVEN PO AT THIS TIME FOR HEADACHE.
[2020-11-08 23:59] VITALS: BP 171/94; TEMP 98.2
--- NOTE | 2020-11-09 00:03 | NUR ---
LABETALOL 10 MG GIVEN FOR A BP OF 171/94 AT THIS TIME.
[2020-11-09 03:50] VITALS: BP 150/86; TEMP 97.9
[2020-11-09 06:00] LABS: POTASSIUM 5.1 mmol/L (3.6-5.2)
[2020-11-09 06:20] LABS: PLATELET COUNT 142 K/uL (152-353)
--- NOTE | 2020-11-09 09:47 | NUR ---
NOTIFIED MD OF PITTING EDEMA ON PT'S LOWER EXTREMITIES. STATED THAT HE WILL ORDER LASIX AND SCDS TO BE USED.
--- NOTE | 2020-11-09 10:00 | NUR ---
SCDS HAVE BEEN APPLIED TO PT'S CALVES BILATERALLY. PT STATES THAT THEY FEEL GOOD AND DO NOT PINCH.
--- NOTE | 2020-11-09 19:57 | NUR ---
PT IS UP IN THE CHAIR WITH EXTENSION OF OXYGEN. NO NAD NOTED AT THIS TIME.
[2020-11-09 20:18] VITALS: BP 147/82; TEMP 98.4
--- NOTE | 2020-11-09 20:48 | NUR ---
PM MEDS GIVEN AT THIS TIME. PT. TOLERATED WELL.
[2020-11-09 23:39] VITALS: BP 148/76; TEMP 98
[2020-11-10 04:32] VITALS: BP 119/66; TEMP 97.5
[2020-11-10 05:17] LABS: PLATELET COUNT 171 K/uL (152-353)
[2020-11-10 08:00] VITALS: BP 105/70; TEMP 97.9
[2020-11-10 12:00] VITALS: BP 108/63; TEMP 97.9
[2020-11-10 20:00] VITALS: BP 142/83; TEMP 97.9
--- NOTE | 2020-11-10 20:00 | NUR ---
PT AWAKE, ALERT, AND ORIENTED SITTING UP IN BED WATCHING TV WITH NO PROBLEMS NOTED, TALKATIVE WITH NAPHTHALENE OPERATOR AND HAS NO NEEDS OR PROBLEMS, NO S/S OF DISTRESS NOTED, IV LOCK INTACT TO L FA AREA, RESP RATE NONLABORED,, O2 AT 3LPM VIA NC, ENCOURAGED TO CALL NEEDED, TELEMETRY IN USE, RAILS UP, BED IN LOW POSITION.
--- NOTE | 2020-11-10 22:00 | NUR ---
PT AWAKE WATCHING TV, DENIES ANY NEEDS OR PROBLEMS, TALKATIVE WITH DRIVE THRU ORDER TAKER, IV INTACT, O2 IN USE, TELEMETRY IN USE. GAVE NIGHTLY MEDICATIONS PO WHOLE WITH NO PROBLEMS. WILL MONITOR CLOSELY, RAILS UP, BED IN LOW POSITION, ENCOURAGED TO CALL NEEDEED. ACKNOWLEDGES UNDERSTANDING.
[2020-11-11] VITALS (7 sets, daily range): BP systolic 109–167; BP diastolic 58–83; TEMP 97.5–98.9
--- NOTE | 2020-11-11 01:22 | NUR ---
PT RESTING IN POSITION OF COMFORT IN BED WITH EYES CLOSED, NO S/S OF PAIN OR DISTRESS NOTED, RESP RATE NONLABORED, O2 IN USE VIA NC, IV LOCK INTACT, TELEMETRY IN USE WITH IRREGULAR RATE, WILL MONITOR CLOSELY, RAILS UP, BED IN LOW POSITION, CALL LIGHT IN REACH.
--- NOTE | 2020-11-11 03:20 | NUR ---
PT AWAKE LAYING IN BED IN POSITION OF COMFORT, DENIES ANY PAIN OR PROBLEMS, IV LOCK INTACT TO L FA FLUSHED EASILY WITH 10ML NS, NO S/S OF ACUTE DISTRESS NOTED, PT STATES SHE JUST GOT FINISHED USING THE BATHROOM A FEW MINUTES AGO, APPLIED O2 VIA NC DUE TO OFF PT AT THIS TIME. TELEMETRY IN USE, WILL MONITOR, RAILS UP, CALL LIGHT IN REACH, BED IN LOW POSITION, ENCOURAGED TO CALL NEEDED PT ACKNOWLEDGES UNDERSTANDING.
[2020-11-11 05:35] LABS: PLATELET COUNT 138 K/uL (152-353)
[2020-11-11 06:03] LABS: POTASSIUM 5.2 mmol/L (3.6-5.2)
--- NOTE | 2020-11-11 09:24 | NUR ---
I called the [facility] [phone] x [phone] mon 11/10 @ 1130 am and again this morn 11/11 @ 821am and left message for LISBET Doran to follow up on pts appts after discharge, pts NEW PT APPT requested for cardiology on 11/03 by this administrative underwriter, and to inquire about pts first covid [facility] that she [facility] because [facility]. I also called [facility] [phone] and spoke to Naomi to cancel todays appt with pts pcp Dr. Nichol Saucedo at the [facility]. Per Naomi, she will call me back or will call pt back to [facility] discharge appt for Dr. Saucedo. She stated if we did not hear back to call them again at x [phone] or [phone]. Pt is on the BLUE TEAM. Naomi advised if pt discharges today to keep the appt tomorrwo with her bullet swaging machine operator Dr. Juan F Garza for 11/13/20 @ noon at the [facility] x [phone].
--- NOTE | 2020-11-11 17:13 | NUR ---
THREAPY AT AT THIS TIME.
--- NOTE | 2020-11-11 19:25 | NUR ---
PT AWAKE SITTING UP IN BED WATCHING TV WITH NO S/S OF PAIN OR DISTRESS NOTED, DENIES ANY NEEDS OR PROBLEMS AT THIS TIME, RESP RATE NONLABORED, TELEMETRY IN USE, 22G IV LOCK INTACT TO L FA, O2 AT 3LPM VIA NC. PT TALKATIVE WITH CHEMISTRY DEPARTMENT CHAIR, STATES SHE IS DOING BETTER TODAY. WILL MONITOR CLOSELY, RAILS UP, BED IN LOW POSITION, CALL LIGHT IN REACH, ENCOURAGED TO CALL NEEDED.
[2020-11-12 00:20] VITALS: BP 138/77; TEMP 97.5
--- NOTE | 2020-11-12 01:06 | NUR ---
RESTING IN BED WITH EYES CLOSED IN LOW FIELDS'S POSITION, NO S/S OF PAIN OR DISTRESS NOTED, RESP RATE NONLABORED, TELEMETRY IN USE, O2 AT 3 LPM VIA NC, IV INTACT TO L FA, WILL MONITOR, RAILS UP, BED IN LOW POSITION, CALL LIGHT IN REACH.
--- NOTE | 2020-11-12 03:10 | NUR ---
AWAKE WATCHING TV WITH NO DISTRESS NOTED, DENIES ANY NEEDS AT THIS TIME, WILL MONITOR, PT TALKATIVE WITH TREATMENT SUPERVISOR, RAILS UP, BED IN LOW POSITION, CALL LIGHT IN REACH. O2 IN USE VIA NC.
[2020-11-12 04:00] VITALS: BP 112/65; TEMP 97.5
[2020-11-12 05:39] LABS: PLATELET COUNT 139 K/uL (152-353)
[2020-11-12 05:41] LABS: POTASSIUM 4.9 mmol/L (3.6-5.2)
--- NOTE | 2020-11-12 09:24 | NUR ---
PATIENT REQUESTED PAIN MEDICATION FOR A HEADACHE OF 3 OUT OF 10. PRN TYLENOL GIVEN PER MD ORDERS.
--- NOTE | 2020-11-12 10:22 | NUR ---
DISCUSSED WITH ELOISA FROM UR PATIENT'S COVID VACCINE. PATIENT TO FOLLOW UP WITH PCP FOR COVID VACCINE.
--- NOTE | 2020-11-12 12:25 | NUR ---
PHYSICIAN AT BEDSIDE. CASE DISCUSSED WITH UR AND PHYSICIAN.
[2020-11-12] MEDS ORDERED: APIX1TAB PO (12:40)
[2020-11-12] MEDS ORDERED: DILTCAP70 PO (12:40)
[2020-11-12] MEDS ORDERED: METO50TA63 PO (12:41)
[2020-11-12] MEDS ORDERED: PRED10TA27 PO (12:42)
[2020-11-12] MEDS ORDERED: DIGOX125 MCG PO (13:20)
[2020-11-12] MEDS ORDERED: CARDIZEM LA360 M1 PO (13:27)
--- NOTE | 2020-11-12 14:00 | NUR ---
DISCHARGE INSTRUCTIONS PROVIDED TO PATIENT WITH FOLLOW UP APPOINTMENT CARDS. PATIENT VERBALIZED UNDERSTANDING. 22G TO LFA D/C WITH TIP INTACT. PATIENT TOLERATED WELL. PATIENT AWAITING RIDE HOME.
--- NOTE | 2020-11-12 15:22 | NUR ---
PATIENT DISCHARGED HOME VIA WHEELCHAIR TO PERSONAL VEHICLE WITH FRIEND DRIVING. PATIENT WEARING O2.
== END 2020-11-12 15:23 | disposition home or self-care (01) | DRG 190 ==
LOC: ED 18:22 → ICU 20:30 → PCU 11-04 18:00 → MED/SURG 11-08 10:12
PROVIDERS: Internal Medicine Endocrinology, Diabetes & Metabolism; ADMIT Emergency Medicine Emergency Medical Services; ATTEND Internal Medicine
DX: J44.1 Chronic obstructive pulmonary disease with (acute) exacerbation (principal); J96.21 Acute and chronic respiratory failure with hypoxia; Z87.891 Personal history of nicotine dependence; I48.91 Unspecified atrial fibrillation; I10 Essential (primary) hypertension; E83.42 Hypomagnesemia; Z85.118 Personal history of other malignant neoplasm of bronchus and lung; K74.69 Other cirrhosis of liver
CPT/HCPCS: 36415; 36600; 80048; 80053; 80162; 82805; 82948; 83605; 83735; 83880; 84439; 84443; 84479; 84484; 85027; 85379; 85610; 87040; 87502; 87635; 93005; 94640; 94664; 94760; 96360; 96361; 96365; 96375; 99285; J0456; J0696; J1160; J1644; J1650; J1940; J2930; J3475; J3490; U0003

== ENCOUNTER 2021-12-09 12:09 | Outpatient (CLI) | payer OTHER ==
[~2021-12-09 12:09] MED LIST changes: +AMINOFEN500 MG PO; +APIX1TAB PO; +CARDIZEM LA360 M1 PO; +D350 MCG PO; +DIGOX125 MCG PO; +DILTCAP70 PO; +HAIR SKIN AND N1 TAB PO; +HYDR25TA60 PO; +LORATADINE10 M1 PO; +MAGNESIUM OXID400 M3 PO; +METO50TA63 PO; +PRED10TA27 PO; +VITAMIN E400 UNIT PO
[2021-12-09 12:56] LABS: PLATELET COUNT 189 K/uL (152-353)
[2021-12-09 12:58] LABS: POTASSIUM 5.5 mmol/L (3.6-5.2)
== END 2021-12-09 19:20 | disposition home or self-care (01) ==
LOC: RESP 12:09
PROVIDERS: ATTEND Nurse Practitioner Family
DX: J18.0 Bronchopneumonia, unspecified organism (principal)
CPT/HCPCS: 36415; 80053; 85027

== ENCOUNTER 2021-12-10 14:16 | Outpatient (CLI) | payer OTHER | END 2021-12-10 22:10 | disposition home or self-care (01) | LOC: LAB 14:16 | PROVIDERS: ATTEND Nurse Practitioner Family | DX: J18.0 Bronchopneumonia, unspecified organism (principal) | CPT/HCPCS: 87070; 87205 ==

== ENCOUNTER 2021-12-11 11:36 | Outpatient (CLI) | payer OTHER ==
[2021-12-11 16:18] LABS: PLATELET COUNT 289 K/uL (152-353)
[2021-12-11 16:35] LABS: POTASSIUM 5.7 mmol/L (3.6-5.2)
== END 2021-12-11 18:56 | disposition home or self-care (01) ==
LOC: RAD 11:36
PROVIDERS: ATTEND Nurse Practitioner Family
DX: J18.0 Bronchopneumonia, unspecified organism (principal)
CPT/HCPCS: 36415; 80053; 85027

== ENCOUNTER 2021-12-15 15:18 | Outpatient (CLI) | payer OTHER ==
[2021-12-15 15:50] LABS: POTASSIUM 5.7 mmol/L (3.6-5.2)
== END 2021-12-15 19:46 | disposition home or self-care (01) ==
LOC: LABW 15:18
PROVIDERS: ATTEND Nurse Practitioner Family
DX: E87.5 Hyperkalemia (principal)
CPT/HCPCS: 36415; 80053

== ENCOUNTER 2021-12-16 15:22 | Outpatient (CLI) | payer OTHER | END 2021-12-16 21:43 | disposition home or self-care (01) | LOC: RAD 15:22 | PROVIDERS: ATTEND Nurse Practitioner Family | DX: J18.9 Pneumonia, unspecified organism (principal) ==

== ENCOUNTER 2022-04-21 14:00 | Outpatient (CLI) | payer OTHER | END 2022-04-21 19:11 | disposition home or self-care (01) | LOC: MAMMO 14:00 | PROVIDERS: ATTEND Family Medicine | DX: Z12.31 Encounter for screening mammogram for malignant neoplasm of breast (principal) ==

== ENCOUNTER 2023-01-24 08:35 | Inpatient (IN) | payer OTHER ==
[~2023-01-24] VITALS: Ht 175.3 cm; Wt 112.1 kg
[2023-01-24] VITALS (8 sets, daily range): BP systolic 94–122; BP diastolic 55–73; TEMP 97.3–98.9; Ht 175.3 cm; Wt 112.1 kg
[~2023-01-24 08:35] MED LIST changes: -AMINOFEN500 MG PO; +QUETIAPINE400 MG PO; -SEROQUEL200 MG PO; +TYLENOL EXTRA PO
[2023-01-24 10:02] LABS: PLATELET COUNT 299 K/uL (152-353)
[2023-01-24 10:07] LABS: POTASSIUM 5.5 mmol/L (3.6-5.2)
[2023-01-24] MEDS ORDERED: ELIQUIS5 MG PO (13:23)
[2023-01-24] MEDS ORDERED: BISOPROL FUM10 MG PO (13:23)
[2023-01-24] MEDS ORDERED: ZESTRIL40 MG PO (13:24)
[2023-01-24] MEDS ORDERED: AMLODIPINE BESYLATE PO (13:24)
[2023-01-24] MEDS ORDERED: CRESTOR20 MG PO (13:24)
[2023-01-24] MEDS ORDERED: CYCL10TA35 PO (13:25)
[2023-01-24] MEDS ORDERED: FISH OIL1 C10 PO (13:26)
[2023-01-24] MEDS ORDERED: FLONASE AL50 MCG/ACT NAS (13:27)
[2023-01-24] MEDS ORDERED: XOPENEX HF45 MCG/ACT INH (13:28)
[2023-01-24] MEDS ORDERED: FLUTMIS6 INH (13:32)
[2023-01-24] MEDS ORDERED: SPIRIVA INH (13:36)
[2023-01-25] VITALS: BP 98/62; TEMP 97.8
[2023-01-25 04:00] VITALS: BP 123/79; TEMP 97.9
[2023-01-25 05:51] LABS: PLATELET COUNT 320 K/uL (152-353)
[2023-01-25 06:06] LABS: POTASSIUM 5.2 mmol/L (3.6-5.2)
[2023-01-25 08:00] VITALS: BP 99/53; TEMP 97.4
[2023-01-25 12:01] VITALS: BP 96/66; TEMP 97.7
[2023-01-25 16:00] VITALS: BP 107/68; TEMP 97.6
[2023-01-25 20:00] VITALS: BP 129/60; TEMP 98.6
[2023-01-26] VITALS (7 sets, daily range): BP systolic 109–156; BP diastolic 64–88; TEMP 97.7–99.1
[2023-01-26 05:48] LABS: PLATELET COUNT 287 K/uL (152-353)
[2023-01-26 06:10] LABS: POTASSIUM 5.8 mmol/L (3.6-5.2)
[2023-01-27 04:00] VITALS: BP 115/49; TEMP 98.4
[2023-01-27 04:51] LABS: PLATELET COUNT 289 K/uL (152-353)
[2023-01-27 05:04] LABS: POTASSIUM 6.5 mmol/L (3.6-5.2)
[2023-01-27 08:00] VITALS: BP 128/80; TEMP 97.7
[2023-01-27 12:00] VITALS: BP 120/68; TEMP 97.7
[2023-01-27 15:29] LABS: POTASSIUM 5.8 mmol/L (3.6-5.2)
[2023-01-27 16:00] VITALS: BP 146/78
[2023-01-27 20:00] VITALS: BP 122/43; TEMP 98.6
[2023-01-27 23:40] VITALS: BP 113/54; TEMP 98.7
[2023-01-28 03:46] VITALS: BP 124/45; TEMP 98.7
[2023-01-28 04:46] LABS: PLATELET COUNT 286 K/uL (152-353)
[2023-01-28 04:50] LABS: POTASSIUM 5.5 mmol/L (3.6-5.2)
[2023-01-28 08:00] VITALS: BP 130/71; TEMP 98.3
[2023-01-28 12:00] VITALS: BP 122/71; TEMP 98.5
[2023-01-28 16:00] VITALS: BP 126/69; TEMP 98.7
[2023-01-28 20:00] VITALS: BP 148/69; TEMP 98.4
[2023-01-29] VITALS: BP 142/70; TEMP 98.6
[2023-01-29 04:00] VITALS: BP 123/66; TEMP 98.5
[2023-01-29 04:52] LABS: PLATELET COUNT 248 K/uL (152-353)
[2023-01-29 05:01] LABS: POTASSIUM 5.7 mmol/L (3.6-5.2)
[2023-01-29 08:00] VITALS: BP 111/79; TEMP 97.6
[2023-01-29 12:30] VITALS: BP 93/72; TEMP 97.9
[2023-01-29 16:00] VITALS: BP 112/67; TEMP 97.2
[2023-01-29 20:00] VITALS: BP 141/72; TEMP 98.6
[2023-01-30] VITALS: BP 137/65; TEMP 98.9
[2023-01-30 04:00] VITALS: BP 146/78; TEMP 98.7
[2023-01-30 05:42] LABS: PLATELET COUNT 238 K/uL (152-353)
[2023-01-30 05:55] LABS: POTASSIUM 5.2 mmol/L (3.6-5.2)
[2023-01-30 08:00] VITALS: BP 156/69; TEMP 98.8
[2023-01-30 11:55] VITALS: BP 136/58; TEMP 98.5
[2023-01-30 15:59] VITALS: BP 147/79; TEMP 98.3
[2023-01-30 20:00] VITALS: BP 160/84; TEMP 98.3
[2023-01-31] VITALS: BP 124/67; TEMP 98.8
[2023-01-31 04:00] VITALS: BP 160/70; TEMP 98.5
[2023-01-31 05:25] LABS: PLATELET COUNT 248 K/uL (152-353)
[2023-01-31 05:37] LABS: POTASSIUM 5.5 mmol/L (3.6-5.2)
[2023-01-31 08:00] VITALS: BP 126/65; TEMP 97.7
[2023-01-31 12:00] VITALS: BP 129/65; TEMP 97.6
[2023-01-31 16:00] VITALS: BP 131/86; TEMP 97.8
[2023-01-31 20:00] VITALS: BP 155/67; TEMP 98.4
[2023-02-01 00:02] VITALS: BP 147/76; TEMP 97.7
[2023-02-01 04:00] VITALS: BP 143/78; TEMP 97.7
[2023-02-01 07:59] VITALS: BP 152/76; TEMP 97.7
[2023-02-01 08:52] LABS: POTASSIUM 5.9 mmol/L (3.6-5.2)
[2023-02-01 12:00] VITALS: BP 146/65; TEMP 97.7
[2023-02-01 16:00] VITALS: BP 156/75; TEMP 98.3
[2023-02-01 20:00] VITALS: BP 157/83; TEMP 97.8
[2023-02-02] VITALS: BP 161/80; TEMP 98
[2023-02-02 04:00] VITALS: BP 160/90; TEMP 97.8
[2023-02-02 05:21] LABS: PLATELET COUNT 207 K/uL (152-353)
[2023-02-02 05:35] LABS: POTASSIUM 5.7 mmol/L (3.6-5.2)
[2023-02-02 08:00] VITALS: BP 138/72; TEMP 97.8
[2023-02-02 12:00] VITALS: BP 146/75; TEMP 97.8
[2023-02-02 16:00] VITALS: BP 177/74; TEMP 98.2
[2023-02-02 20:00] VITALS: BP 148/77; TEMP 98.3
[2023-02-03] VITALS: BP 139/69; TEMP 98.5
[2023-02-03 04:00] VITALS: BP 161/78; TEMP 98.6
[2023-02-03 08:00] VITALS: BP 138/98; TEMP 97.9
[2023-02-03 12:26] VITALS: BP 140/89; TEMP 97.7
[2023-02-03 14:03] LABS: POTASSIUM 4.7 mmol/L (3.6-5.2)
[2023-02-03 16:00] VITALS: BP 136/81; TEMP 98.1
[2023-02-03 20:00] VITALS: BP 161/71; TEMP 98.5
[2023-02-04 04:00] VITALS: BP 117/66; TEMP 98.2
[2023-02-04 05:55] LABS: POTASSIUM 4.9 mmol/L (3.6-5.2)
[2023-02-04 08:00] VITALS: BP 121/68; TEMP 97.9
[2023-02-04 12:01] VITALS: BP 135/72; TEMP 97.5
[2023-02-04 15:57] VITALS: BP 131/59; TEMP 98
[2023-02-04] MEDS ORDERED: DILT30TA24 PO (18:27)
[2023-02-04] MEDS ORDERED: PRED10TA27 PO (18:27)
[2023-02-04 20:00] VITALS: BP 132/80; TEMP 98.3
== END 2023-02-04 21:12 | disposition short-term general hospital (02) | DRG 194 ==
LOC: ED 08:35 → MED/SURG 11:57
PROVIDERS: Family Medicine; Internal Medicine Endocrinology, Diabetes & Metabolism; ADMIT Nurse Practitioner Family; ATTEND Internal Medicine
DX: J18.9 Pneumonia, unspecified organism (principal); J96.11 Chronic respiratory failure with hypoxia; J44.1 Chronic obstructive pulmonary disease with (acute) exacerbation; I47.0 Re-entry ventricular arrhythmia; N17.8 Other acute kidney failure; E87.1 Hypo-osmolality and hyponatremia; I48.20 Chronic atrial fibrillation, unspecified; Z85.118 Personal history of other malignant neoplasm of bronchus and lung; R07.89 Other chest pain; R05.9 Cough, unspecified; S92.322A Displaced fracture of second metatarsal bone, left foot, initial encounter for closed fracture; S92.332A Displaced fracture of third metatarsal bone, left foot, initial encounter for closed fracture; S92.342A Displaced fracture of fourth metatarsal bone, left foot, initial encounter for closed fracture; S90.822A Blister (nonthermal), left foot, initial encounter; W01.0XXA Fall on same level from slipping, tripping and stumbling without subsequent striking against object, initial encounter; Y92.89 Other specified places as the place of occurrence of the external cause; T46.0X5A Adverse effect of cardiac-stimulant glycosides and drugs of similar action, initial encounter; E87.5 Hyperkalemia; Z87.891 Personal history of nicotine dependence; R91.8 Other nonspecific abnormal finding of lung field; Z79.01 Long term (current) use of anticoagulants; R26.81 Unsteadiness on feet; I10 Essential (primary) hypertension; D64.89 Other specified anemias; F10.10 Alcohol abuse, uncomplicated; B18.2 Chronic viral hepatitis C
CPT/HCPCS: 36415; 80048; 80053; 80162; 83735; 84100; 84132; 84484; 85027; 90715; 93005; 94760; 96361; 96365; 96375; 99284; J0696; J1160; J2920; J2930; J3490; J7120

== ENCOUNTER 2023-05-15 13:41 | Inpatient (IN) | payer OTHER ==
[~2023-05-15] VITALS: Ht 175.3 cm; Wt 112.7 kg
[~2023-05-15 13:41] MED LIST changes: +BISOPROL FUM10 MG PO; +CLARITIN10 M1 PO; +CRESTOR20 MG PO; +CYCL10TA35 PO; +D350 MC1 PO; -D350 MCG PO; +DILT30TA24 PO; +ELIQUIS5 MG PO; +FISH OIL1000 M2 PO; +FLONASE AL50 MCG/ACT NAS; +FLUTMIS6 INH; -LORATADINE10 M1 PO; +TIOTROPIUM INH; +XOPENEX HF45 MCG/ACT INH; +ZESTRIL40 MG PO
[2023-05-15 13:48] VITALS: BP 117/75; TEMP 97.36
[2023-05-15 14:23] LABS: PLATELET COUNT 157 K/uL (152-353)
[2023-05-15 14:45] LABS: POTASSIUM 3.5 mmol/L (3.6-5.2); SODIUM 130 mmol/L (136-145)
[2023-05-15 14:50] LABS: PARTIAL THROMBOPLASTIN TIME 34.4 SECONDS (23.9-36.7)
[2023-05-15 19:11] VITALS: BP 121/82; TEMP 98.7; Ht 175.3 cm; Wt 112.7 kg
[2023-05-15 20:00] VITALS: BP 112/78; TEMP 98.4
[2023-05-15 23:34] VITALS: BP 121/59; TEMP 97.9
[2023-05-16 03:41] VITALS: BP 152/78; TEMP 98.4
[2023-05-16 05:20] LABS: PLATELET COUNT 121 K/uL (152-353)
[2023-05-16 05:44] LABS: POTASSIUM 3.2 mmol/L (3.6-5.2)
[2023-05-16 08:00] VITALS: BP 144/88; TEMP 98.2
[2023-05-16] MEDS ORDERED: LOPRESSOR100 MG PO (08:31)
[2023-05-16] MEDS ORDERED: HYDR25TA60 PO (08:32)
[2023-05-16 11:50] VITALS: BP 124/73; TEMP 97.7
[2023-05-16 16:00] VITALS: BP 108/61; TEMP 97.6
[2023-05-16 19:53] VITALS: BP 141/72; TEMP 97.2
[2023-05-16 23:31] VITALS: BP 112/59; TEMP 98.2
[2023-05-17 03:50] VITALS: BP 99/56; TEMP 98
[2023-05-17 07:53] VITALS: BP 87/51; TEMP 97.4
[2023-05-17 08:35] LABS: POTASSIUM 3.7 mmol/L (3.6-5.2)
[2023-05-17 09:00] LABS: PLATELET COUNT 106 K/uL (152-353)
[2023-05-17 12:00] VITALS: BP 93/54; TEMP 97.8
[2023-05-17 15:56] VITALS: BP 107/58; TEMP 97.8
[2023-05-17 19:52] VITALS: BP 92/54; TEMP 97.7
[2023-05-17 23:39] VITALS: BP 100/61; TEMP 96.7
[2023-05-18 04:00] VITALS: BP 106/58; TEMP 98.7
[2023-05-18 08:00] VITALS: BP 101/81; TEMP 98.8
[2023-05-18 10:26] LABS: PLATELET COUNT 92 K/uL (152-353)
[2023-05-18 10:42] LABS: POTASSIUM 3.6 mmol/L (3.6-5.2)
[2023-05-18 12:00] VITALS: BP 105/56
[2023-05-18 16:30] VITALS: BP 91/55; TEMP 97.9
== END 2023-05-18 19:55 | disposition short-term general hospital (02) | DRG 563 ==
LOC: ED 13:41 → MED/SURG 16:10
PROVIDERS: Family Medicine; Internal Medicine; ADMIT Internal Medicine Endocrinology, Diabetes & Metabolism; ATTEND Internal Medicine Endocrinology, Diabetes & Metabolism
DX: S82.831A Other fracture of upper and lower end of right fibula, initial encounter for closed fracture (principal); N17.9 Acute kidney failure, unspecified; S89.391A Other physeal fracture of lower end of right fibula, initial encounter for closed fracture; S92.354A Nondisplaced fracture of fifth metatarsal bone, right foot, initial encounter for closed fracture; W19.XXXA Unspecified fall, initial encounter; Z91.81 History of falling; Y93.89 Activity, other specified; Y92.009 Unspecified place in unspecified non-institutional (private) residence as the place of occurrence of the external cause; Y99.9 Unspecified external cause status; J44.9 Chronic obstructive pulmonary disease, unspecified; I48.91 Unspecified atrial fibrillation; I10 Essential (primary) hypertension; D64.9 Anemia, unspecified
CPT/HCPCS: 36415; 80048; 80053; 82550; 83735; 84100; 84484; 85027; 85610; 85730; 93005; 94760; 96361; 96365; 99284; J2270; J3490